=== PATIENT | male | born 1945 | race Caucasian/White ===

== ENCOUNTER 2024-11-30 17:05 | Inpatient (IN) | payer MEDICARE, OTHER ==
[2024-11-30] VITALS: BP 148/75; TEMP 98.1; O2SAT 98
[~2024-11-30] VITALS: Ht 157.5 cm; Wt 69.4 kg
[2024-11-30] MEDS: ONDANSETRON HCL/PF 4 MG/2 ML VIAL IVP ONE (18:00)
[2024-11-30 18:07] LABS: BASOPHILS # (AUTO) 0.1 K/uL (0.0-0.2); BASOPHILS % (AUTO) 0.7 % (0.0-2.0); EOSINOPHILS # (AUTO) 0.2 K/uL (0.0-0.7); EOSINOPHILS % (AUTO) 1.4 % (0.0-6.0); HEMATOCRIT 36 % (39-51); LYMPHOCYTES % (AUTO) 8.7 % (20.0-44.0); MEAN CORPUSCULAR HEMOGLOBIN 31 PG (26.0-33.0); MEAN CORPUSCULAR HGB CONC 33 g/dl (31.0-36.0); MEAN CORPUSCULAR VOLUME 95 fL (80-96); MONOCYTES # (AUTO) 0.9 K/uL (0.1-1.30); MONOCYTES % (AUTO) 8.2 % (2.0-12.0); NEUTROPHILS # (AUTO) 8.9 K/uL (1.8-8.9); PLATELET COUNT (AUTO) 409 K/uL (150-450); RED BLOOD CELL COUNT(AUTO) 3.85 MIL/uL (4.5-6.0); RED CELL DISTRIBUTION WIDTH 12.8 % (11.5-15.0)
[2024-11-30] MEDS ORDERED: ONDANSETRON HCL/PF 4 MG/2 ML VIAL ONE (18:15)
[2024-11-30 18:21] LABS: ALANINE AMINOTRANSFERASE 29 U/L (12-78); ALBUMIN 3.3 g/dL (3.4-5.0); ALKALINE PHOSPHATASE 126 U/L (46-116); ASPARTATE AMINOTRANSFERASE 15 U/L (15-37); BILIRUBIN,DIRECT 0.2 mg/dL (0.0-0.2); BILIRUBIN,TOTAL 0.5 mg/dL (0.2-1.0); CALCIUM, SERUM 9.6 mg/dL (8.5-10.1); CARBON DIOXIDE 27 mmol/L (21-32); CHLORIDE 105 mmol/L (98-107); CREATININE 1.3 mg/dL (0.6-1.3); GLUCOSE 110 mg/dL (74-106); SODIUM SERUM 138 mmol/L (136-145); TOTAL PROTEIN, SERUM 6.9 g/dL (6.4-8.2); UREA NITROGEN, BLOOD 27 mg/dL (7-18)
[2024-11-30] MEDS: IV NS 0.9% 500 ML BAG IV ONE (18:21)
[2024-11-30 18:22] LABS: ACETAMINOPHEN <10 ug/ml (10-30); ALCOHOL, BLOOD < 3 mg/dL (0-10); SALICYLATE 0.7 mg/dL (2.8-20.0)
[2024-11-30] MEDS ORDERED: OLANZAPINE 5 MG TABLET ONE (18:33)
[2024-11-30] MEDS: OLANZAPINE ZYDIS 5 MG TAB.RAPDIS PO ONE (18:40)
[2024-11-30] MEDS ORDERED: LORAZEPAM INJ 2 MG/ML VIAL ONE (19:42)
[2024-11-30] MEDS: LORAZEPAM INJ 2 MG/ML VIAL IV ONE (19:46)
[2024-11-30] MEDS ORDERED: AMLO-213 PO (19:52)
[2024-11-30] MEDS ORDERED: LOSA50TA39 PO (19:52)
[2024-11-30] MEDS ORDERED: MULT-213 PO (19:52)
[2024-11-30] MEDS ORDERED: ACET325T53 PO (19:52)
[2024-11-30] MEDS ORDERED: QUET25TA PO (19:52)
[2024-11-30] MEDS ORDERED: MIRT-90 PO (19:52)
[2024-11-30] MEDS ORDERED: CYAN100T44 PO (19:52)
[2024-11-30] MEDS ORDERED: CHOL500062 PO (19:52)
[2024-11-30] MEDS ORDERED: MELA1TAB2 PO (19:52)
[2024-11-30 21:41] LABS: APPEARANCE,URINE CLEAR (CLEAR); BILIRUBIN,URINE NEGATIVE (NEGATIVE); BLOOD, URINE NEGATIVE Ery/uL (NEGATIVE); COLOR,URINE YELLOW (YELLOW); KETONES,URINE 1+ mg/dL (NEGATIVE); LEUKOCYTE ESTERASE ,URINE NEGATIVE (NEGATIVE); NITRITE, URINE NEGATIVE (NEGATIVE); PROTEIN,URINE NEGATIVE (NEGATIVE); UGLUCOSE NEGATIVE (NEGATIVE); UROBILINOGEN,URINE 0.2 EU/dL (0.2)
[2024-11-30 21:54] LABS: AMPHETAMINE, URINE NEGATIVE (NEGATIVE); BARBITURATE, URINE NEGATIVE (NEGATIVE); BENZODIAZEPINE, URINE NEGATIVE (NEGATIVE); CANNABINOID, URINE NEGATIVE (NEGATIVE); COCCAINE, URINE NEGATIVE (NEGATIVE); OPIATE, URINE NEGATIVE (NEGATIVE); PHENCYCLIDINE SCREEN,URINE NEGATIVE (NEGATIVE)
[2024-11-30 22:09] LABS: ADD URINE CULTURE NO; BACTERIA,URINE Rare /HPF (None Seen); RBC,URINE 0-2 /HPF (0-2); SQUAMOUS EPITHELIAL CELL,UR None Seen /HPF (None Seen); WBC,URINE NONE SEEN /HPF (0-3)
[2024-11-30] MEDS ORDERED: MELATONIN PO PRN (23:30)
[2024-11-30] MEDS ORDERED: Z GUARD REMEDY 4 OZ OINT TP PRN (23:30)
[2024-11-30] MEDS ORDERED: ACETAMINOPHEN 325 MG TABLET PO PRN (23:30)
[2024-11-30] MEDS ORDERED: ONDANSETRON HCL/PF 4 MG/2 ML VIAL IVP PRN (23:30)
[2024-11-30] MEDS ORDERED: MAGNESIUM HYDROXIDE 30 ML UDC PO PRN (23:30)
[2024-11-30] MEDS ORDERED: PYRIDOXINE PO PRN (23:30)
[2024-12-01] MEDS: QUETIAPINE FUMARATE 25 MG TABLET PO SCH (00:17)
[2024-12-01] MEDS: IV NS 0.9% 1,000 ML IV PRN (00:18)
[2024-12-01] MEDS: ENOXAPARIN SODIUM 40 MG/0.4 ML DISP.SYRIN SQ SCH (00:19)
[2024-12-01] MEDS ORDERED: DEXTROSE 50%-WATER 50 ML DISP.SYRIN IV PRN (01:00)
[2024-12-01] MEDS ORDERED: INSULIN REGULAR, HUMAN 100 UNIT/ML 3 ML VIAL SQ PRN (01:00)
[2024-12-01 06:31] LABS: BASOPHILS # (AUTO) 0.1 K/uL (0.0-0.2); BASOPHILS % (AUTO) 0.6 % (0.0-2.0); EOSINOPHILS # (AUTO) 0.3 K/uL (0.0-0.7); EOSINOPHILS % (AUTO) 2.6 % (0.0-6.0); HEMATOCRIT 39 % (39-51); HEMOGLOBIN 12.8 g/dL (13.5-17.5); LYMPHOCYTES # (AUTO) 1.6 K/uL (0.8-4.8); MEAN CORPUSCULAR HEMOGLOBIN 32 PG (26.0-33.0); MEAN CORPUSCULAR HGB CONC 33 g/dl (31.0-36.0); MEAN CORPUSCULAR VOLUME 96 fL (80-96); MONOCYTES # (AUTO) 1.3 K/uL (0.1-1.30); MONOCYTES % (AUTO) 10.7 % (2.0-12.0); NEUTROPHILS % (AUTO) 73.1 % (43.0-81.0); PLATELET COUNT (AUTO) 358 K/uL (150-450); RED BLOOD CELL COUNT(AUTO) 4.04 MIL/uL (4.5-6.0); RED CELL DISTRIBUTION WIDTH 13.1 % (11.5-15.0); WHITE BLOOD COUNT (AUTO) 12.3 K/uL (4.3-11.0)
[2024-12-01] MEDS: BLOOD SUGAR DIAGNOSTIC 1 EACH STRIP IN SCH (06:32)
[2024-12-01 06:36] LABS: CREATININE 1.2 mg/dL (0.6-1.3); MAGNESIUM 2.2 mg/dL (1.8-2.4); PHOSPHORUS 2.7 mg/dL (2.5-4.9); POTASSIUM 3.9 mmol/L (3.5-5.1)
[2024-12-01 07:18] LABS: THYROID STIMULATING HORMONE 2.32 uIU/mL (0.358-3.74)
[2024-12-01 08:00] VITALS: BP 105/55; TEMP 98.2; O2SAT 95
[2024-12-01] MEDS: CHOLECALCIFEROL 1,000 UNIT TABLET (VIT D3) PO SCH (08:17)
[2024-12-01] MEDS: PANTOPRAZOLE 40 MG TABLET.DR PO SCH (08:17)
[2024-12-01] MEDS: MULTIVIT W/MINERALS 1 TAB TABLET PO SCH (08:17)
[2024-12-01] MEDS: CYANOCOBALAMIN 100 MCG TABLET PO SCH (08:18)
[2024-12-01] MEDS: LOSARTAN POTASSIUM 50 MG TABLET PO SCH (08:54)
[2024-12-01] MEDS: AMLODIPINE BESYLATE 10 MG TABLET PO SCH (12:41)
[2024-12-01 16:00] VITALS: BP 132/62; TEMP 98.1; O2SAT 95
[2024-12-01 20:00] VITALS: BP 124/73; TEMP 98.4; O2SAT 97
[2024-12-01] MEDS: MIRTAZAPINE 15 MG TABLET PO SCH (21:40)
[2024-12-02 08:00] VITALS: BP_SYST 126; BP_SYST 94; BP_DIAS 59; BP_DIAS 61; TEMP 97.3; TEMP 97.5; O2SAT 96; O2SAT 97
[2024-12-02] MEDS: QUETIAPINE FUMARATE 25 MG TABLET PO SCH (11:21)
[2024-12-02] MEDS ORDERED: OLANZAPINE 10 MG VIAL IM PRN (11:30)
[2024-12-02 16:00] VITALS: BP 136/54; TEMP 97.6; TEMP 98.1; O2SAT 98
[2024-12-02] MEDS: IV NS 0.9% 1,000 ML IV PRN (19:52)
[2024-12-02 20:00] VITALS: BP 106/64; TEMP 98.2; O2SAT 99
[2024-12-02] MEDS: MUPIROCIN OINT 2% 22 GM TUBE NS SCH (20:44)
[2024-12-03 06:59] LABS: BASOPHILS # (AUTO) 0.1 K/uL (0.0-0.2); EOSINOPHILS # (AUTO) 0.3 K/uL (0.0-0.7); HEMATOCRIT 35 % (39-51); HEMOGLOBIN 11.9 g/dL (13.5-17.5); LYMPHOCYTES # (AUTO) 1.5 K/uL (0.8-4.8); LYMPHOCYTES % (AUTO) 18.1 % (20.0-44.0); MEAN CORPUSCULAR HEMOGLOBIN 32 PG (26.0-33.0); MEAN CORPUSCULAR HGB CONC 34 g/dl (31.0-36.0); MEAN CORPUSCULAR VOLUME 94 fL (80-96); MONOCYTES # (AUTO) 0.8 K/uL (0.1-1.30); NEUTROPHILS # (AUTO) 5.7 K/uL (1.8-8.9); NEUTROPHILS % (AUTO) 67.9 % (43.0-81.0); PLATELET COUNT (AUTO) 356 K/uL (150-450); RED BLOOD CELL COUNT(AUTO) 3.73 MIL/uL (4.5-6.0); WHITE BLOOD COUNT (AUTO) 8.4 K/uL (4.3-11.0)
[2024-12-03 07:17] LABS: CALCIUM, SERUM 8.9 mg/dL (8.5-10.1); CREATININE 1.2 mg/dL (0.6-1.3); MAGNESIUM 2.1 mg/dL (1.8-2.4); PHOSPHORUS 2.9 mg/dL (2.5-4.9); POTASSIUM 3.5 mmol/L (3.5-5.1)
[2024-12-03 08:00] VITALS: BP 115/61; TEMP 99; O2SAT 94
[2024-12-03] MEDS ORDERED: RIVA10TA PO (11:28)
[2024-12-03 16:00] VITALS: BP 162/66; TEMP 98.8; O2SAT 96
== END 2024-12-03 17:00 | DRG 641 ==
LOC: ER 17:14 → MED 22:27
PROVIDERS: ADMIT Nurse Practitioner Family; ATTEND Internal Medicine
DX: E86.0 Dehydration (principal); E44.1 Mild protein-calorie malnutrition; F03.918 Unspecified dementia, unspecified severity, with other behavioral disturbance; R62.7 Adult failure to thrive; R53.1 Weakness; D64.9 Anemia, unspecified; E11.9 Type 2 diabetes mellitus without complications; E78.5 Hyperlipidemia, unspecified; E88.09 Other disorders of plasma-protein metabolism, not elsewhere classified; I10 Essential (primary) hypertension; Z66 Do not resuscitate; Z68.28 Body mass index [BMI] 28.0-28.9, adult; Z20.822 Contact with and (suspected) exposure to COVID-19; R79.89 Other specified abnormal findings of blood chemistry; N17.9 Acute kidney failure, unspecified
CPT/HCPCS: 36415; 71045-TC; 80048-TC; 80076-TC; 81001; 82962-TC; 83735-TC; 84100-TC; 84443-TC; 85025-TC; 87081-TC; A4223; G0378; G0480; J1650; J1815; J2060; J2405; J7030; J7040

== ENCOUNTER 2025-03-20 16:53 | Inpatient (IN) | payer MEDICARE, OTHER ==
[~2025-03-20] VITALS: Ht 175.3 cm; Wt 68.0 kg
[~2025-03-20 16:53] MED LIST: ACET325T53 PO; AMLO-213 PO; CHOL500062 PO; CYAN100T44 PO; LOSA50TA39 PO; MELA1TAB2 PO; MIRT-90 PO; MULT-213 PO; QUET25TA PO; RIVA10TA PO
[2025-03-20 17:50] LABS: PLATELET COUNT (AUTO) 297 K/uL (150-450); RED BLOOD CELL COUNT(AUTO) 3.76 MIL/uL (4.5-6.0); RED CELL DISTRIBUTION WIDTH 15.1 % (11.5-15.0); WHITE BLOOD COUNT (AUTO) 8.1 K/uL (4.3-11.0)
[2025-03-20 17:57] LABS: CALCIUM, SERUM 9.0 mg/dL (8.5-10.1); CREATININE 1.3 mg/dL (0.6-1.3); SODIUM SERUM 142 mmol/L (136-145); UREA NITROGEN, BLOOD 35 mg/dL (7-18)
[2025-03-20 18:09] LABS: ALCOHOL, BLOOD < 3 mg/dL (0-10); ASPARTATE AMINOTRANSFERASE 10 U/L (15-37); TOTAL PROTEIN, SERUM 7.0 g/dL (6.4-8.2)
[2025-03-20] MEDS ORDERED: GUAI100S9 PO (18:44)
[2025-03-20] MEDS ORDERED: LORA-258 PO (18:44)
[2025-03-20] MEDS ORDERED: MIRT-91 PO (18:44)
[2025-03-20 19:22] LABS: APPEARANCE,URINE CLEAR (CLEAR); BLOOD, URINE NEGATIVE Ery/uL (NEGATIVE); LEUKOCYTE ESTERASE ,URINE NEGATIVE (NEGATIVE); NITRITE, URINE NEGATIVE (NEGATIVE); UGLUCOSE NEGATIVE (NEGATIVE)
[2025-03-20 19:48] LABS: AMPHETAMINE, URINE NEGATIVE (NEGATIVE); BARBITURATE, URINE NEGATIVE (NEGATIVE); BENZODIAZEPINE, URINE NEGATIVE (NEGATIVE); CANNABINOID, URINE NEGATIVE (NEGATIVE); COCCAINE, URINE NEGATIVE (NEGATIVE); OPIATE, URINE NEGATIVE (NEGATIVE)
[2025-03-20] MEDS ORDERED: HALOPERIDOL LACTATE INJ 5 MG/ML VIAL ONE (20:47)
[2025-03-20] MEDS: HALOPERIDOL LACTATE INJ 5 MG/ML VIAL IM ONE (20:53)
[2025-03-21] MEDS ORDERED: ACETAMINOPHEN 325 MG TABLET PO PRN
[2025-03-21] MEDS ORDERED: LORAZEPAM 1 MG TABLET PO PRN
[2025-03-21] MEDS ORDERED: MAGNESIUM HYDROXIDE 30 ML UDC PO PRN
[2025-03-21] MEDS ORDERED: MAG HYDROX/AL HYDROX/SIMETH 30 ML UDC PO PRN
[2025-03-21] MEDS ORDERED: ZOLPIDEM TARTRATE 5 MG TABLET PO PRN
[2025-03-21 00:08] VITALS: BP 131/68; TEMP 97.8
[2025-03-21] MEDS: BLOOD SUGAR DIAGNOSTIC 1 EACH STRIP IN ONE (00:54)
[2025-03-21] MEDS ORDERED: GUAIFENESIN 300 MG/15 ML UDC PO PRN (01:00)
[2025-03-21] MEDS: ZOLPIDEM TARTRATE 5 MG TABLET PO PRN (02:24)
[2025-03-21 08:00] VITALS: BP 136/67; TEMP 98; O2SAT 97
[2025-03-21] MEDS: CHOLECALCIFEROL 1,000 UNIT TABLET (VIT D3) PO SCH (08:09)
[2025-03-21] MEDS: LOSARTAN POTASSIUM 50 MG TABLET PO SCH (08:09)
[2025-03-21] MEDS: CYANOCOBALAMIN 100 MCG TABLET PO SCH (08:09)
[2025-03-21] MEDS: AMOX/CLAVULANATE 875 MG TABLET PO SCH (08:09)
[2025-03-21] MEDS: PANTOPRAZOLE 40 MG TABLET.DR PO SCH (08:09)
[2025-03-21] MEDS: MULTIVIT W/MINERALS 1 TAB TABLET PO SCH (08:10)
[2025-03-21 08:50] LABS: ASPARTATE AMINOTRANSFERASE 32.0 U/L (15-37); CALCIUM, SERUM 9.5 mg/dL (8.5-10.1); CREATININE 1.2 mg/dL (0.6-1.3); SODIUM SERUM 137.0 mmol/L (136-145); TOTAL PROTEIN, SERUM 8.0 g/dL (6.4-8.2); UREA NITROGEN, BLOOD 34.0 mg/dL (7-18)
[2025-03-21 09:08] LABS: LDL 117.0 mg/dL (0-99)
[2025-03-21 10:21] LABS: CREATININE 1.1 mg/dL (0.6-1.3)
[2025-03-21] MEDS: AMLODIPINE BESYLATE 10 MG TABLET PO SCH (12:39)
[2025-03-21] MEDS ORDERED: DOSE PER PHARMACY VORIconazole/VFEND XX PRN (14:00)
[2025-03-21 16:00] VITALS: BP 132/67; TEMP 97.9; O2SAT 96
[2025-03-21] MEDS: VORICONAZOLE 200 MG TABLET PO SCH (16:19)
[2025-03-21 19:57] VITALS: BP 121/77; TEMP 98.1; O2SAT 95
[2025-03-21] MEDS: MIRTAZAPINE 15 MG TABLET PO SCH (21:13)
[2025-03-21] MEDS: LORAZEPAM 0.5 MG TABLET PO PRN (22:31)
[2025-03-22 06:54] LABS: PLATELET COUNT (AUTO) 343 K/uL (150-450); RED BLOOD CELL COUNT(AUTO) 4.09 MIL/uL (4.5-6.0); RED CELL DISTRIBUTION WIDTH 15.1 % (11.5-15.0); WHITE BLOOD COUNT (AUTO) 10.6 K/uL (4.3-11.0)
[2025-03-22 07:15] LABS: PHOSPHORUS 3.8 mg/dL (2.5-4.9)
[2025-03-22 07:24] LABS: CREATINE KINASE, TOTAL 960.0 U/L (39-308)
[2025-03-22 08:00] VITALS: BP 110/75; TEMP 98.9; O2SAT 94
[2025-03-22 15:24] LABS: HIV-1/2 ANTIBODY NON REACTIVE (NONREACTIVE)
[2025-03-22 16:00] VITALS: BP 122/65; TEMP 98.7; O2SAT 97
[2025-03-22 21:25] VITALS: BP 130/76; TEMP 98.2; O2SAT 98
[2025-03-23 06:07] LABS: PTH, INTACT 27 pg/mL (15-65)
[2025-03-23] MEDS ORDERED: Z GUARD REMEDY 4 OZ OINT TP PRN (07:00)
[2025-03-23 08:00] VITALS: BP 125/71; TEMP 97.9; O2SAT 96
[2025-03-23 16:00] VITALS: BP 101/54; TEMP 97.8; O2SAT 96
[2025-03-23 20:59] LABS: PLATELET COUNT (AUTO) 332 K/uL (150-450); RED BLOOD CELL COUNT(AUTO) 4.20 MIL/uL (4.5-6.0); RED CELL DISTRIBUTION WIDTH 14.8 % (11.5-15.0); WHITE BLOOD COUNT (AUTO) 9.3 K/uL (4.3-11.0)
[2025-03-23 21:12] VITALS: BP 111/75; TEMP 97.9; O2SAT 96
[2025-03-24 08:00] VITALS: BP 103/65; TEMP 97.9; O2SAT 99
[2025-03-24 16:00] VITALS: BP 93/64; TEMP 97.9; O2SAT 97
[2025-03-24 20:00] VITALS: BP 130/74; TEMP 98.1; O2SAT 97
[2025-03-24 20:14] LABS: *HIV-1 RNA BY PCR <20 copies/mL (.)
[2025-03-24 20:52] VITALS: BP 130/74; TEMP 98.1; O2SAT 97
[2025-03-25 08:00] VITALS: BP 113/77; TEMP 97.9; O2SAT 94
[2025-03-25 15:07] LABS: COCCIDIOIDES Abs, IgG,EIA 0.4 EIA Units (.); COCCIDIOIDES Abs, IgM,EIA 0.4 EIA Units (.)
[2025-03-25 16:00] VITALS: BP 107/63; TEMP 97.7; O2SAT 96
[2025-03-25 18:07] LABS: ASPERGILLUS GAL. Ag, SERUM/BAL 0.04 Index (0.00-0.49)
[2025-03-25 20:08] VITALS: BP 103/65; TEMP 98; O2SAT 97
[2025-03-26 08:00] VITALS: BP 109/72; TEMP 97.8; O2SAT 94
[2025-03-26] MEDS: MUPIROCIN OINT 2% 22 GM TUBE NS SCH (10:09)
[2025-03-26 16:15] VITALS: BP 88/65; TEMP 97.6; O2SAT 98
[2025-03-26 20:04] VITALS: BP 111/73; TEMP 98; O2SAT 98
[2025-03-27 07:46] LABS: PLATELET COUNT (AUTO) 346 K/uL (150-450); RED BLOOD CELL COUNT(AUTO) 4.17 MIL/uL (4.5-6.0); RED CELL DISTRIBUTION WIDTH 14.3 % (11.5-15.0); WHITE BLOOD COUNT (AUTO) 7.2 K/uL (4.3-11.0)
[2025-03-27 08:00] VITALS: BP 115/86; TEMP 98.7; O2SAT 98
[2025-03-27 08:10] LABS: CALCIUM, SERUM 9.2 mg/dL (8.5-10.1); CREATININE 1.0 mg/dL (0.6-1.3); SODIUM SERUM 137.0 mmol/L (136-145); UREA NITROGEN, BLOOD 34.0 mg/dL (7-18)
[2025-03-27 08:15] LABS: CREATINE KINASE, TOTAL 185.0 U/L (39-308)
[2025-03-27 08:22] LABS: ASPARTATE AMINOTRANSFERASE 27.0 U/L (15-37); CALCIUM, SERUM 9.1 mg/dL (8.5-10.1); CREATININE 1.1 mg/dL (0.6-1.3); SODIUM SERUM 136.0 mmol/L (136-145); TOTAL PROTEIN, SERUM 7.5 g/dL (6.4-8.2); UREA NITROGEN, BLOOD 34.0 mg/dL (7-18)
[2025-03-27 08:52] LABS: ASPARTATE AMINOTRANSFERASE 27.0 U/L (15-37); TOTAL PROTEIN, SERUM 7.5 g/dL (6.4-8.2)
[2025-03-27 16:00] VITALS: BP 100/55; TEMP 98.6; O2SAT 97
[2025-03-28] MEDS ORDERED: VORICONAZOLE 200 MG TABLET ONE (05:30)
[2025-03-28 08:00] VITALS: BP 105/81; TEMP 97.2; O2SAT 96
[2025-03-28 16:00] VITALS: BP 128/103; TEMP 97.5; O2SAT 95
[2025-03-28 20:19] VITALS: BP 121/80; TEMP 98.1; O2SAT 100
[2025-03-28] MEDS ORDERED: IBUPROFEN 400 MG TABLET PO PRN (21:30)
[2025-03-29 08:00] VITALS: BP 137/114; TEMP 97.9; O2SAT 95
[2025-03-29 16:00] VITALS: BP 98/70; TEMP 97.4; O2SAT 98
[2025-03-29 19:06] LABS: *SPE A/G RATIO 0.7 (0.7-1.7); *SPE ALBUMIN 3.2 g/dL (2.9-4.4); *SPE ALPHA-1-GLOBULIN 0.4 g/dL (0.0-0.4); *SPE ALPHA-2-GLOBULIN 1.1 g/dL (0.4-1.0); *SPE BETA GLOBULIN 1.3 g/dL (0.7-1.3); *SPE GLOBULIN, TOTAL 4.4 g/dL (2.2-3.9); *SPE M-SPIKE Not Observed g/dL (Not Observed); *SPE PROTEIN TOTAL 7.6 g/dL (6.0-8.5); *SPEGAMMA GLOBULIN 1.6 g/dL (0.4-1.8)
[2025-03-29 20:49] VITALS: BP 127/98; TEMP 97.9; O2SAT 97
[2025-03-30 08:00] VITALS: BP 100/72; TEMP 98.7; O2SAT 97
[2025-03-30 16:00] VITALS: BP 102/59; TEMP 97.9; O2SAT 94
[2025-03-30 21:17] VITALS: BP 114/62; TEMP 98.1; O2SAT 96
[2025-03-31 08:00] VITALS: BP 102/58; TEMP 97.9; O2SAT 97
[2025-03-31 16:00] VITALS: BP 129/68; TEMP 97.9; O2SAT 99
[2025-03-31 20:39] VITALS: BP 122/55; TEMP 98; O2SAT 98
[2025-04-01 08:00] VITALS: BP 99/75; TEMP 98.6; O2SAT 98
== END 2025-04-01 14:50 | DRG 885 ==
LOC: ER 16:55 → GPS 21:49
PROVIDERS: ADMIT Psychiatry & Neurology Psychiatry; ATTEND Registered Nurse Psychiatric/Mental Health
DX: F39 Unspecified mood [affective] disorder (principal); N17.9 Acute kidney failure, unspecified; F02.83 Dementia in other diseases classified elsewhere, unspecified severity, with mood disturbance; M62.82 Rhabdomyolysis; F29 Unspecified psychosis not due to a substance or known physiological condition; D64.9 Anemia, unspecified; E11.9 Type 2 diabetes mellitus without complications; G30.9 Alzheimer's disease, unspecified; E78.5 Hyperlipidemia, unspecified; I25.10 Atherosclerotic heart disease of native coronary artery without angina pectoris; J32.1 Chronic frontal sinusitis; Z73.6 Limitation of activities due to disability; E86.9 Volume depletion, unspecified; E83.9 Disorder of mineral metabolism, unspecified; Z20.822 Contact with and (suspected) exposure to COVID-19; Z87.891 Personal history of nicotine dependence
CPT/HCPCS: 36415; 70450-TC; 76770-TC; 80048-TC; 80053-TC; 80061-TC; 80076-TC; 82550-TC; 82553; 82565-TC; 82962-TC; 83735-TC; 83970; 84100-TC; 84155; 84165; 84443-TC; 85025-TC; 86803; 87081-TC; 87536; 87806; 87899; 97112-TC; 97116-TC; 97530-TC; G0480; J1630; Q0163